=== PATIENT | male | born 1945 | race Caucasian/White ===

== ENCOUNTER → 2024-04-14 18:24 | Outpatient (REF) | payer MEDICARE, SELFPAY | LOC: RAD 18:24 | PROVIDERS: ATTENDING PHYSICIAN Family Medicine | DX: M25.551 Pain in right hip (principal) | CPT/HCPCS: 73502 ==

== ENCOUNTER → 2025-08-31 16:25 | Outpatient (REF) | payer MEDICARE, SELFPAY | LOC: RAD 16:25 | PROVIDERS: ATTENDING PHYSICIAN Family Medicine | DX: M25.561 Pain in right knee (principal); M25.562 Pain in left knee | CPT/HCPCS: 73564 ==